=== PATIENT | male | born 1955 | race Caucasian/White ===

== ENCOUNTER 2021-05-11 16:56 | Inpatient (IN) | payer MEDICARE, OTHER ==
[~2021-05-11] VITALS: Ht 185.4 cm; Wt 98.9 kg
[2021-05-11 16:57] VITALS: BP 161/109
[2021-05-11 17:19] VITALS: BP 140/91
[2021-05-11 17:42] LABS: ABG HCO3 25.1 mmol/L (21.0-28.0); ABG OXYGEN SATURATION 93.7 % (95.0-99.0); ABG PCO2 38 mmHg (35-48)
[2021-05-11] MEDS ORDERED: SOLU-MEDROL 125MG VIAL IVP ONE (18:00)
[2021-05-11] MEDS ORDERED: CEFTRIAXONE 1G VIAL IVP ONE (18:00)
[2021-05-11] MEDS ORDERED: ACETAMINOPHEN 500 MG TABLET PO ONE (18:00)
[2021-05-11] MEDS ORDERED: AZITHROMYCIN 500MG VIAL IVPB ONE (18:00)
[2021-05-11] MEDS ORDERED: 0.9% NACL 250ML IVPB ONE (18:00)
[2021-05-11] MEDS ORDERED: AZITHROMYCIN 500MG+NS 250ML 250 ML IV ONE (18:13)
[2021-05-11 18:20] LABS: BASOPHILS % (AUTO) 0.6 % (0.0-5.0); EOSINOPHILS % (AUTO) 0.5 % (0.0-8.0); HEMATOCRIT 43.6 % (42-54); LYMPHOCYTES % (AUTO) 6.5 % (21.0-51.0); MEAN CORPUSCULAR HEMOGLOBIN 32.7 pg (27.0-33.0); MEAN CORPUSCULAR HGB CONC 34.2 g/dL (32.0-36.0); MEAN CORPUSCULAR VOLUME 95.8 fL (79-99); MONOCYTES % (AUTO) 5.9 % (3.0-13.0); NEUTROPHILS % (AUTO) 86.2 % (40.0-77.0); PLATELET COUNT (AUTO) 154 K/uL (130-400); RED BLOOD CELL COUNT(AUTO) 4.55 MIL/uL (4.50-6.20); RED CELL DISTRIBUTION WIDTH 13.2 % (11.0-15.5); WHITE BLOOD COUNT (AUTO) 6.3 K/uL (4.8-10.8)
[2021-05-11 18:38] LABS: CREATININE 1.3 mg/dL (0.5-1.5); POTASSIUM 3.4 mmol/L (3.5-5.1)
[2021-05-11 18:42] LABS: ALBUMIN 3.9 g/dL (3.5-5.0); BILIRUBIN,TOTAL 0.9 mg/dL (0.2-1.0); MAGNESIUM 1.1 mg/dL (1.80-2.40); TOTAL PROTEIN, SERUM 7.5 g/dL (6.0-8.3)
[2021-05-11 18:51] LABS: B-TYPE NATRIURETIC PEPTIDE 50 pg/mL (0-100)
[2021-05-11] MEDS: IPRATROPIUM/ALBUTEROL SULFATE 3 ML SOLUTION IH SCH ×2 (19:54→23:37)
[2021-05-11 19:57] VITALS: BP 148/87
[2021-05-11] MEDS ORDERED: ACETAMINOPHEN 325 MG TAB PO PRN (20:30)
[2021-05-11] MEDS ORDERED: MAGNESIUM 2GM PREMIX 50ML 50 ML IV PRN (20:30)
[2021-05-11] MEDS: CEFTRIAXONE 1G VIAL IV SCH (20:30)
[2021-05-11] MEDS ORDERED: ONDANSETRON 4MG INJ IV PRN (20:30)
[2021-05-11] MEDS ORDERED: NITROGLYCERIN 0.4 MG SL TAB SL PRN (20:30)
[2021-05-11] MEDS ORDERED: LACTULOSE 20 GM/30 ML UDCUP PO PRN (20:30)
[2021-05-11] MEDS ORDERED: MAG/ALUM/SIMETH 30 ML UDCUP PO PRN (20:30)
[2021-05-11] MEDS: ACETAMINOPHEN 325 MG TAB PO PRN (20:53)
[2021-05-11] MEDS: SOLU-MEDROL 40MG VIAL IVP SCH (20:57)
[2021-05-11] MEDS: DOXYCYCLINE 100MG+NS 250ML 250 ML IV SCH (21:30)
[2021-05-11] MEDS: FAMOTIDINE 20MG TAB PO SCH (21:30)
[2021-05-11 21:47] LABS: APPEARANCE,URINE Clear (CLEAR); COLOR,URINE Yellow (YELLOW); GLUCOSE, URINE (UA) 500 mg/dL (NEGATIVE); PROTEIN,URINE Negative (NEGATIVE)
[2021-05-11 21:48] LABS: BILIRUBIN,URINE Negative (NEGATIVE); KETONES,URINE Negative (NEGATIVE); LEUKOCYTE ESTERASE ,URINE Negative (NEGATIVE); NITRATE,URINE Negative (NEGATIVE); OCCULT BLOOD,URINE Negative (NEGATIVE); UROBILINOGEN,URINE 0.2 mg/dL (0.2-1.0)
[2021-05-11 21:56] LABS: AMPHET/METH SCREEN,URINE NEGATIVE (NEGATIVE); BACTERIA,URINE None Seen /HPF (None Seen); BARBITURATE SCREEN, URINE NEGATIVE (NEGATIVE); BENZODIAZEPINES SCREEN,URINE POSITIVE (NEGATIVE); CANNABINOID SCREEN,URINE NEGATIVE (NEGATIVE); COCAINE SCREEN,URINE NEGATIVE (NEGATIVE); MUCUS,URINE Few LPF (None Seen); OPIATE SCREEN,URINE NEGATIVE (NEGATIVE); PHENCYCLIDINE SCREEN,URINE NEGATIVE (NEGATIVE); RBC,URINE 0-1 /HPF (0-1); SQUAMOUS EPITHELIAL CELL,UR 0-2 /HPF (0-2); WBC,URINE 0-1 /HPF (0-1)
[2021-05-12] MEDS ORDERED: ALBUTEROL 0.083% 2.5 MG/3 ML INH IH SCH
[2021-05-12 00:41] VITALS: BP 144/86
[2021-05-12 02:24] VITALS: BP 129/78
[2021-05-12] MEDS: IPRATROPIUM/ALBUTEROL SULFATE 3 ML SOLUTION IH SCH ×4 (03:16→14:29)
[2021-05-12] MEDS ORDERED: SODIUM CHLORIDE 3% FOR INHALATION 4 ML/AMP VIAL.NEB IH ONE (03:38)
[2021-05-12 05:57] LABS: HEMATOCRIT 44.5 % (42-54); LYMPHOCYTES % (AUTO) 14.2 % (21.0-51.0); MEAN CORPUSCULAR HEMOGLOBIN 32.5 pg (27.0-33.0); MEAN CORPUSCULAR HGB CONC 33.7 g/dL (32.0-36.0); MEAN CORPUSCULAR VOLUME 96.5 fL (79-99); MONOCYTES % (AUTO) 3.6 % (3.0-13.0); NEUTROPHILS % (AUTO) 81.8 % (40.0-77.0); PLATELET COUNT (AUTO) 144 K/uL (130-400); RED BLOOD CELL COUNT(AUTO) 4.61 MIL/uL (4.50-6.20); RED CELL DISTRIBUTION WIDTH 13.1 % (11.0-15.5); WHITE BLOOD COUNT (AUTO) 2.5 K/uL (4.8-10.8)
[2021-05-12 06:18] LABS: CRP QUANTITATIVE 2.6 mg/L (0.00-9.0); MAGNESIUM 1.5 mg/dL (1.80-2.40)
[2021-05-12 07:28] LABS: LYMPHOCYTES % (MANUAL) 15 % (22-44); MAN.DIFF COMMENT-IMPRESSION MANUAL DIFFERENTIAL; MONOCYTES % (MANUAL) 1 % (2-9); PLATELET MORPHOLOGY COMMENT ADEQUATE; SEGMENTED NEUTROPHILS % 84 % (40-70)
[2021-05-12] MEDS: SOLU-MEDROL 40MG VIAL IVP SCH ×2 (08:26→20:15)
[2021-05-12] MEDS: DOXYCYCLINE 100MG+NS 250ML 250 ML IV SCH ×2 (08:26→20:13)
[2021-05-12] MEDS: FAMOTIDINE 20MG TAB PO SCH ×2 (08:26→20:14)
[2021-05-12] MEDS: ENOXAPARIN SODIUM 40 MG/0.4 ML SYRINGE SQ SCH (08:26)
[2021-05-12 09:27] VITALS: BP 122/91
[2021-05-12 09:54] LABS: ALBUMIN 3.7 g/dL (3.5-5.0); BILIRUBIN,TOTAL 0.7 mg/dL (0.2-1.0); CREATININE 1.3 mg/dL (0.5-1.5); POTASSIUM 4.1 mmol/L (3.5-5.1); TOTAL PROTEIN, SERUM 7.6 g/dL (6.0-8.3)
[2021-05-12] MEDS: BUDESONIDE 0.5 MG/2 ML INH IH SCH ×2 (11:19→18:27)
[2021-05-12] MEDS: INSULIN HUMULIN R 100 UNIT/ML 3ML SQ SCH ×3 (11:30→21:23)
[2021-05-12] MEDS ORDERED: ALPRAZOLAM 1 MG TAB PO PRN (11:30)
[2021-05-12] MEDS: 0.9%NACL 1000ML 1,000 ML IV SCH (11:30)
[2021-05-12] MEDS ORDERED: FOLIC ACID 1 MG TABLET PO SCH (11:30)
[2021-05-12] MEDS ORDERED: THIAMINE HCL 100 MG TABLET PO SCH (11:30)
[2021-05-12 11:46] LABS: HEMOGLOBIN A1C 6.3 % (4.0-6.0)
[2021-05-12] MEDS: METOPROLOL SUCCINATE 50 MG TAB.SR.24H PO SCH (12:00)
[2021-05-12 13:41] VITALS: BP 144/77
[2021-05-12] MEDS: AMLODIPINE 5 MG TAB PO SCH (14:00)
[2021-05-12 16:00] VITALS: BP 175/84
[2021-05-12 20:00] VITALS: BP 168/96
[2021-05-12] MEDS: CEFTRIAXONE 1G VIAL IV SCH (20:13)
[2021-05-12] MEDS: ACETAMINOPHEN 325 MG TAB PO PRN (20:14)
[2021-05-12] MEDS: HYDRALAZINE 20MG/ML VIAL IV PRN (20:15)
[2021-05-13] VITALS (10 sets, daily range): BP systolic 139–182; BP diastolic 73–100
[2021-05-13] MEDS ORDERED: HYDRALAZINE 20MG/ML VIAL IV SCH (00:30)
[2021-05-13] MEDS: 0.9%NACL 1000ML 1,000 ML IV SCH (00:39)
[2021-05-13] MEDS: HYDRALAZINE 20MG/ML VIAL IV PRN (04:18)
[2021-05-13 04:23] LABS: BASOPHILS % (AUTO) 0.1 % (0.0-5.0); HEMATOCRIT 46.1 % (42-54); LYMPHOCYTES % (AUTO) 4.5 % (21.0-51.0); MEAN CORPUSCULAR HEMOGLOBIN 32.5 pg (27.0-33.0); MEAN CORPUSCULAR VOLUME 98.5 fL (79-99); MONOCYTES % (AUTO) 4.4 % (3.0-13.0); NEUTROPHILS % (AUTO) 90.2 % (40.0-77.0); PLATELET COUNT (AUTO) 190 K/uL (130-400); RED BLOOD CELL COUNT(AUTO) 4.68 MIL/uL (4.50-6.20); RED CELL DISTRIBUTION WIDTH 13.5 % (11.0-15.5); WHITE BLOOD COUNT (AUTO) 13.3 K/uL (4.8-10.8)
[2021-05-13 04:52] LABS: LACTATE DEHYDROGENASE 205 U/L (81-234)
[2021-05-13 05:02] LABS: CRP QUANTITATIVE < 2.00 mg/L (0.00-9.0)
[2021-05-13] MEDS: BUDESONIDE 0.5 MG/2 ML INH IH SCH ×2 (06:00→19:01)
[2021-05-13] MEDS ORDERED: IPRATROPIUM 0.5 MG/2.5 ML INH IH SCH (06:00)
[2021-05-13] MEDS: INSULIN HUMULIN R 100 UNIT/ML 3ML SQ SCH ×3 (06:04→22:16)
[2021-05-13 06:21] LABS: ALBUMIN 3.5 g/dL (3.5-5.0); BILIRUBIN,DIRECT 0.1 mg/dL (0.0-0.3); BILIRUBIN,TOTAL 0.4 mg/dL (0.2-1.0); POTASSIUM 3.5 mmol/L (3.5-5.1); TOTAL PROTEIN, SERUM 7.4 g/dL (6.0-8.3)
[2021-05-13] MEDS: ACETYLCYSTEINE 10% 100MG/ML 4ML VIAL IH SCH (06:49)
[2021-05-13] MEDS: DOXYCYCLINE 100MG+NS 250ML 250 ML IV SCH ×2 (08:48→22:15)
[2021-05-13] MEDS: THIAMINE HCL 100 MG TABLET PO SCH (08:48)
[2021-05-13] MEDS: FAMOTIDINE 20MG TAB PO SCH ×2 (08:48→23:44)
[2021-05-13] MEDS: FOLIC ACID 1 MG TABLET PO SCH (08:48)
[2021-05-13] MEDS: METOPROLOL SUCCINATE 50 MG TAB.SR.24H PO SCH (08:48)
[2021-05-13] MEDS: AMLODIPINE 5 MG TAB PO SCH (08:48)
[2021-05-13] MEDS: ENOXAPARIN SODIUM 40 MG/0.4 ML SYRINGE SQ SCH (08:49)
[2021-05-13] MEDS: SOLU-MEDROL 40MG VIAL IVP SCH ×2 (08:50→22:15)
[2021-05-13] MEDS ORDERED: IPRATROPIUM/ALBUTEROL SULFATE 3 ML SOLUTION IH SCH (10:00)
[2021-05-13] MEDS: LOSARTAN 50 MG TABLET PO SCH ×2 (12:16→23:44)
[2021-05-13] MEDS ORDERED: AMLODIPINE 5 MG TAB PO ONE (18:30)
[2021-05-13] MEDS: IPRATROPIUM/ALBUTEROL SULFATE 3 ML SOLUTION IH SCH ×2 (19:01→23:02)
[2021-05-13] MEDS: CEFTRIAXONE 1G VIAL IV SCH (22:15)
[2021-05-13] MEDS: ALPRAZOLAM 1 MG TAB PO PRN (23:43)
[2021-05-13] MEDS: RIFAXIMIN 550 MG TABLET PO SCH (23:46)
[2021-05-14 04:44] VITALS: BP 137/73
[2021-05-14 04:49] LABS: BASOPHILS % (AUTO) 0.1 % (0.0-5.0); EOSINOPHILS % (AUTO) 0.1 % (0.0-8.0); HEMATOCRIT 41.1 % (42-54); LYMPHOCYTES % (AUTO) 8.6 % (21.0-51.0); MEAN CORPUSCULAR HEMOGLOBIN 32.4 pg (27.0-33.0); MEAN CORPUSCULAR HGB CONC 32.6 g/dL (32.0-36.0); MEAN CORPUSCULAR VOLUME 99.5 fL (79-99); MONOCYTES % (AUTO) 3.2 % (3.0-13.0); NEUTROPHILS % (AUTO) 87.4 % (40.0-77.0); PLATELET COUNT (AUTO) 165 K/uL (130-400); RED BLOOD CELL COUNT(AUTO) 4.13 MIL/uL (4.50-6.20); RED CELL DISTRIBUTION WIDTH 13.1 % (11.0-15.5)
[2021-05-14 05:14] LABS: LACTATE DEHYDROGENASE 214 U/L (81-234)
[2021-05-14 05:15] LABS: CRP QUANTITATIVE < 2.00 mg/L (0.00-9.0)
[2021-05-14] MEDS: INSULIN HUMULIN R 100 UNIT/ML 3ML SQ SCH ×4 (05:48→21:00)
[2021-05-14] MEDS: ACETYLCYSTEINE 10% 100MG/ML 4ML VIAL IH SCH (06:00)
[2021-05-14 07:09] LABS: CREATININE 0.8 mg/dL (0.5-1.5); MAGNESIUM 2.3 mg/dL (1.80-2.40); POTASSIUM 3.9 mmol/L (3.5-5.1)
[2021-05-14 08:00] VITALS: BP 126/55
[2021-05-14] MEDS: RIFAXIMIN 550 MG TABLET PO SCH ×2 (08:22→22:13)
[2021-05-14] MEDS: LOSARTAN 50 MG TABLET PO SCH ×2 (08:22→22:13)
[2021-05-14] MEDS: THIAMINE HCL 100 MG TABLET PO SCH (08:22)
[2021-05-14] MEDS: SOLU-MEDROL 40MG VIAL IVP SCH (08:22)
[2021-05-14] MEDS: METOPROLOL SUCCINATE 50 MG TAB.SR.24H PO SCH (08:22)
[2021-05-14] MEDS: FAMOTIDINE 20MG TAB PO SCH ×2 (08:22→22:13)
[2021-05-14] MEDS: ALPRAZOLAM 1 MG TAB PO PRN ×2 (08:22→13:12)
[2021-05-14] MEDS: FOLIC ACID 1 MG TABLET PO SCH (08:22)
[2021-05-14] MEDS: AMLODIPINE 5 MG TAB PO SCH (08:22)
[2021-05-14] MEDS: ENOXAPARIN SODIUM 40 MG/0.4 ML SYRINGE SQ SCH (08:23)
[2021-05-14] MEDS: DOXYCYCLINE 100MG+NS 250ML 250 ML IV SCH ×2 (08:23→22:13)
[2021-05-14] MEDS: BUDESONIDE 0.5 MG/2 ML INH IH SCH ×2 (08:26→19:20)
[2021-05-14] MEDS: IPRATROPIUM/ALBUTEROL SULFATE 3 ML SOLUTION IH SCH ×4 (08:26→23:24)
[2021-05-14 12:00] VITALS: BP 145/85
[2021-05-14 16:00] VITALS: BP 154/82
[2021-05-14 20:36] VITALS: BP 155/82
[2021-05-14] MEDS: CEFTRIAXONE 1G VIAL IV SCH (22:13)
[2021-05-15] MEDS: SOLU-MEDROL 40MG VIAL IVP SCH ×3 (01:57→20:05)
[2021-05-15 06:43] LABS: BASOPHILS % (AUTO) 0.1 % (0.0-5.0); HEMATOCRIT 46.1 % (42-54); LYMPHOCYTES % (AUTO) 19.4 % (21.0-51.0); MEAN CORPUSCULAR HEMOGLOBIN 32.4 pg (27.0-33.0); MEAN CORPUSCULAR HGB CONC 32.5 g/dL (32.0-36.0); MEAN CORPUSCULAR VOLUME 99.6 fL (79-99); MONOCYTES % (AUTO) 7.7 % (3.0-13.0); PLATELET COUNT (AUTO) 172 K/uL (130-400); RED BLOOD CELL COUNT(AUTO) 4.63 MIL/uL (4.50-6.20); RED CELL DISTRIBUTION WIDTH 13.1 % (11.0-15.5); WHITE BLOOD COUNT (AUTO) 7.6 K/uL (4.8-10.8)
[2021-05-15] MEDS: IPRATROPIUM/ALBUTEROL SULFATE 3 ML SOLUTION IH SCH ×4 (06:51→23:48)
[2021-05-15 07:05] LABS: CREATININE 0.8 mg/dL (0.5-1.5); MAGNESIUM 2.3 mg/dL (1.80-2.40); POTASSIUM 3.5 mmol/L (3.5-5.1)
[2021-05-15] MEDS: ACETYLCYSTEINE 10% 100MG/ML 4ML VIAL IH SCH (07:06)
[2021-05-15] MEDS: BUDESONIDE 0.5 MG/2 ML INH IH SCH ×2 (07:06→18:35)
[2021-05-15] MEDS: INSULIN HUMULIN R 100 UNIT/ML 3ML SQ SCH ×4 (07:30→20:04)
[2021-05-15] MEDS: ALPRAZOLAM 1 MG TAB PO PRN ×3 (07:36→20:05)
[2021-05-15] MEDS: AMLODIPINE 5 MG TAB PO SCH (07:36)
[2021-05-15] MEDS: METOPROLOL SUCCINATE 50 MG TAB.SR.24H PO SCH (07:36)
[2021-05-15] MEDS: LOSARTAN 50 MG TABLET PO SCH ×2 (07:36→20:05)
[2021-05-15 08:00] VITALS: BP 185/96
[2021-05-15] MEDS: DOXYCYCLINE 100MG+NS 250ML 250 ML IV SCH ×2 (09:26→20:05)
[2021-05-15] MEDS: FAMOTIDINE 20MG TAB PO SCH ×2 (09:30→20:05)
[2021-05-15] MEDS: FOLIC ACID 1 MG TABLET PO SCH (09:30)
[2021-05-15] MEDS: THIAMINE HCL 100 MG TABLET PO SCH (09:30)
[2021-05-15] MEDS: RIFAXIMIN 550 MG TABLET PO SCH ×2 (09:31→20:05)
[2021-05-15] MEDS: ENOXAPARIN SODIUM 40 MG/0.4 ML SYRINGE SQ SCH (09:32)
[2021-05-15 11:54] VITALS: BP 173/92
[2021-05-15] MEDS: HYDRALAZINE 20MG/ML VIAL IV PRN (13:37)
[2021-05-15 16:00] VITALS: BP 186/98
[2021-05-15] MEDS: CEFTRIAXONE 1G VIAL IV SCH (20:08)
[2021-05-15 20:12] VITALS: BP 195/87
[2021-05-15 23:38] VITALS: BP 192/95
[2021-05-16 03:03] VITALS: BP 194/105
[2021-05-16] MEDS: HYDRALAZINE 20MG/ML VIAL IV PRN (03:03)
[2021-05-16 04:04] VITALS: BP 167/84
[2021-05-16] MEDS: INSULIN HUMULIN R 100 UNIT/ML 3ML SQ SCH (06:23)
[2021-05-16 06:43] LABS: HEMOGLOBIN A1C 6.4 % (4.0-6.0)
[2021-05-16] MEDS: IPRATROPIUM/ALBUTEROL SULFATE 3 ML SOLUTION IH SCH ×2 (06:43→11:22)
[2021-05-16] MEDS: BUDESONIDE 0.5 MG/2 ML INH IH SCH (06:44)
[2021-05-16 06:51] LABS: CREATININE 0.8 mg/dL (0.5-1.5); MAGNESIUM 2.3 mg/dL (1.80-2.40); POTASSIUM 3.4 mmol/L (3.5-5.1)
[2021-05-16 07:42] VITALS: BP 168/79
[2021-05-16] MEDS: LOSARTAN 50 MG TABLET PO SCH (08:26)
[2021-05-16] MEDS: FAMOTIDINE 20MG TAB PO SCH (08:27)
[2021-05-16] MEDS: FOLIC ACID 1 MG TABLET PO SCH (08:27)
[2021-05-16] MEDS: RIFAXIMIN 550 MG TABLET PO SCH (08:28)
[2021-05-16] MEDS: METOPROLOL SUCCINATE 50 MG TAB.SR.24H PO SCH (08:28)
[2021-05-16] MEDS: THIAMINE HCL 100 MG TABLET PO SCH (08:28)
[2021-05-16] MEDS: ALPRAZOLAM 1 MG TAB PO PRN (08:29)
[2021-05-16] MEDS: DOXYCYCLINE 100MG+NS 250ML 250 ML IV SCH (08:30)
[2021-05-16] MEDS: ENOXAPARIN SODIUM 40 MG/0.4 ML SYRINGE SQ SCH (08:48)
[2021-05-16] MEDS: SOLU-MEDROL 40MG VIAL IVP SCH (08:49)
[2021-05-16] MEDS ORDERED: AMLODIPINE 5 MG TAB PO SCH (09:00)
[2021-05-16] MEDS ORDERED: KCL 20 MEQ ERTAB PO SCH (09:00)
[2021-05-16] MEDS ORDERED: ALBU8.5H8 IH (11:02)
[2021-05-16] MEDS ORDERED: PANT20TA PO (11:02)
[2021-05-16] MEDS ORDERED: PRED20TA3 PO (11:02)
[2021-05-16] MEDS ORDERED: CEFD300C3 PO (11:02)
[2021-05-16] MEDS ORDERED: METF-444 PO (11:12)
== END 2021-05-16 11:44 | disposition home or self-care (01) | DRG 871 ==
LOC: EDH 16:56 → EDHIP 20:05 → 4CH 05-12 15:21
PROVIDERS: ADMIT Internal Medicine; ATTEND Internal Medicine
DX: A41.9 Sepsis, unspecified organism (principal); J96.01 Acute respiratory failure with hypoxia; J44.1 Chronic obstructive pulmonary disease with (acute) exacerbation; J45.901 Unspecified asthma with (acute) exacerbation; E72.20 Disorder of urea cycle metabolism, unspecified; J44.0 Chronic obstructive pulmonary disease with (acute) lower respiratory infection; J20.9 Acute bronchitis, unspecified; F10.10 Alcohol abuse, uncomplicated; Z20.822 Contact with and (suspected) exposure to COVID-19; F41.9 Anxiety disorder, unspecified; I10 Essential (primary) hypertension; E83.42 Hypomagnesemia; D72.810 Lymphocytopenia; E87.6 Hypokalemia; E11.9 Type 2 diabetes mellitus without complications; Z87.01 Personal history of pneumonia (recurrent)
CPT/HCPCS: 36415; 36600; 71045; 80048; 80053; 80076; 80305; 81001; 82140; 82550; 82728; 82803; 82948; 83036; 83605; 83615; 83735; 83880; 84145; 84484; 85025; 85378; 86140; 87040; 87046; 87071; 87088; 87116; 87177; 87205; 87206; 87324; 87329; 87486; 87581; 87633; 87635; 87798; 87804; 93005; 94640; 94664; 94760; 97039; C9803; G0378; J0360; J0456; J0696; J1650; J1815; J2405; J2920; J2930; J3475; J3490; J7608